=== PATIENT | female | born 1975 | race Hispanic/Latino ===

== ENCOUNTER 2019-10-05 09:08 | Inpatient (IN) | payer MEDICAID, OTHER ==
[~2019-10-05] VITALS: Ht 154.9 cm; Wt 96.6 kg
[~2019-10-05 09:08] MED LIST: AMLO5TAB4 PO; ASPI-1005 PO; ATOR10 PO; CALC500T7 PO; LISI10TA7 PO; PNV91TAB3 PO
[2019-10-05 09:31] LABS: BASOPHILS % (AUTO) 0.5 % (0.0-5.0); EOSINOPHILS % (AUTO) 10.9 % (0.0-8.0); HEMATOCRIT 40.5 % (36-48); LYMPHOCYTES % (AUTO) 20.9 % (21.0-51.0); MEAN CORPUSCULAR HEMOGLOBIN 27.7 pg (27.0-33.0); MEAN CORPUSCULAR HGB CONC 32.1 g/dL (32.0-36.0); MEAN CORPUSCULAR VOLUME 86.2 fL (79-99); MONOCYTES % (AUTO) 4.9 % (3.0-13.0); NEUTROPHILS % (AUTO) 62.4 % (40.0-77.0); PLATELET COUNT (AUTO) 229 K/uL (130-400); RED CELL DISTRIBUTION WIDTH 13.3 % (11.0-15.5); WHITE BLOOD COUNT (AUTO) 5.7 K/uL (4.8-10.8)
[2019-10-05 09:47] LABS: ALBUMIN 3.8 g/dL (3.5-5.0); BILIRUBIN,TOTAL 0.5 mg/dL (0.2-1.0); CREATININE 0.7 mg/dL (0.5-1.5); TOTAL PROTEIN, SERUM 7.7 g/dL (6.0-8.3)
[2019-10-05] MEDS ORDERED: IOHEXOL-350 75 ML VIAL IV ONE (10:22)
[2019-10-05 15:00] VITALS: BP 131/75
--- NOTE | 2019-10-05 16:00 | NUR ---
PATIENT ADMITTED UNDER DR. BAEZ'S SERVICES FOR LEFT BREAST CA. PER PATIENT, WILL BE HOSPITALIZED FOR FURTHER TEST. NO CONSULTS.
--- NOTE | 2019-10-05 16:16 | NUR ---
TO NUCLEAR MED. DEPT NOW FOR BONE SCAN.
[2019-10-05] MEDS ORDERED: FLU VACC QS2019-20 36MOS UP/PF 60 MCG/0.5 ML ML IM ONE ×2 (16:30→20:27)
[2019-10-05 19:00] VITALS: BP 129/77
[2019-10-05] MEDS ORDERED: ATORVASTATIN CALCIUM 20 MG TABLET PO SCH (21:00)
[2019-10-06] VITALS: BP 124/72
[2019-10-06 04:00] VITALS: BP 134/80
[2019-10-06 07:14] VITALS: BP 134/80
[2019-10-06] MEDS ORDERED: LISINOPRIL 10 MG TABLET PO SCH (09:00)
[2019-10-06] MEDS ORDERED: AMLODIPINE BESYLATE 5 MG TAB PO SCH (09:00)
[2019-10-06] MEDS ORDERED: ASPIRIN 81MG TAB.CHEW PO SCH (09:00)
[2019-10-06 11:03] VITALS: BP 136/78
== END 2019-10-06 14:03 | disposition home or self-care (01) | DRG 599 ==
LOC: EDH 09:08 → OBSVTOIN 09:59 → EDHIP 09:59 → 3CH 14:42
PROVIDERS: ADMIT Internal Medicine Hematology & Oncology; ATTEND Internal Medicine Hematology & Oncology
DX: C50.919 Malignant neoplasm of unspecified site of unspecified female breast (principal); I10 Essential (primary) hypertension; Z86.73 Personal history of transient ischemic attack (TIA), and cerebral infarction without residual deficits; Z23 Encounter for immunization
CPT/HCPCS: 36415; 71270; 74178; 78306; 80053; 85025; A9503; G0378; Q2035; Q9967

== ENCOUNTER 2020-11-07 15:57 | Inpatient (IN) | payer MEDICAID ==
[~2020-11-07] VITALS: Ht 154.9 cm; Wt 74.5 kg
[~2020-11-07 15:57] MED LIST changes: -CALC500T7 PO; +LISI10TA24 PO; -LISI10TA7 PO; -PNV91TAB3 PO
[2020-11-07 17:16] LABS: BASOPHILS % (AUTO) 0.2 % (0.0-5.0); EOSINOPHILS % (AUTO) 0.9 % (0.0-8.0); LYMPHOCYTES % (AUTO) 26.9 % (21.0-51.0); MEAN CORPUSCULAR HEMOGLOBIN 28.7 pg (27.0-33.0); MEAN CORPUSCULAR HGB CONC 33.2 g/dL (32.0-36.0); MEAN CORPUSCULAR VOLUME 86.3 fL (79-99); NEUTROPHILS % (AUTO) 65.8 % (40.0-77.0); PLATELET COUNT (AUTO) 221 K/uL (130-400); RED BLOOD CELL COUNT(AUTO) 3.94 MIL/uL (4.00-5.50); RED CELL DISTRIBUTION WIDTH 13.3 % (11.0-15.5); WHITE BLOOD COUNT (AUTO) 4.6 K/uL (4.8-10.8)
[2020-11-07 17:29] LABS: INR 1.03 (0.85-1.15); PROTHROMBIN TIME 11.2 SEC (9.6-11.6)
[2020-11-07 17:30] LABS: CREATININE 0.7 mg/dL (0.5-1.5); PARTIAL THROMBOPLASTIN TIME 25.3 SEC (26.3-35.5); POTASSIUM 3.8 mmol/L (3.5-5.1)
[2020-11-07] MEDS ORDERED: ASPIRIN 325 MG TABLET ONE (17:30)
[2020-11-07] MEDS ORDERED: ACETAMINOPHEN 325 MG TAB ONE (17:30)
[2020-11-07] MEDS ORDERED: DiphenhydrAMINE HCL 50 MG/ML VIAL ONE (17:30)
[2020-11-07] MEDS ORDERED: PROCHLORPERAZINE 10MG/2ML INJ ONE (17:30)
[2020-11-07] MEDS ORDERED: 0.9%NACL 1000ML 1,000 ML IV ONE (17:31)
[2020-11-07 17:39] LABS: ALBUMIN 3.4 g/dL (3.5-5.0); BILIRUBIN,TOTAL 0.3 mg/dL (0.2-1.0); TOTAL PROTEIN, SERUM 7.3 g/dL (6.0-8.3)
[2020-11-07 17:56] LABS: B-TYPE NATRIURETIC PEPTIDE 14 pg/mL (0-100)
[2020-11-07] MEDS ORDERED: DEXAMETHASONE SOD PHOSPHATE 4 MG/ML 1ML VIAL IVP SCH (19:30)
[2020-11-07] MEDS ORDERED: MORPHINE 2 MG SYG IVP PRN (19:30)
[2020-11-07] MEDS ORDERED: 0.9%NACL 1000ML 1,000 ML IV SCH (19:30)
[2020-11-07] MEDS ORDERED: ONDANSETRON 4MG INJ IVP PRN (19:30)
[2020-11-07] MEDS ORDERED: DEXAMETHASONE SOD PHOSPHATE 4 MG/ML 1ML VIAL ONE (21:49)
[2020-11-08 00:50] VITALS: BP 126/66
[2020-11-08] MEDS ORDERED: AMLO-257 PO (01:41)
[2020-11-08] MEDS ORDERED: LISI20TA24 PO (01:41)
[2020-11-08] MEDS ORDERED: LETR2.5T7 PO (01:41)
[2020-11-08] MEDS ORDERED: DEXAMETHASONE SOD PHOSPHATE 4 MG/ML 1ML VIAL ONE (03:21)
[2020-11-08 04:00] VITALS: BP 126/66
[2020-11-08] MEDS ORDERED: DEXAMETHASONE SOD PHOSPHATE 4 MG/ML 1ML VIAL IVP SCH ×2 (04:00→12:00)
[2020-11-08 07:38] LABS: APPEARANCE,URINE Clear (CLEAR); BILIRUBIN,URINE Negative (NEGATIVE); COLOR,URINE Yellow (YELLOW); GLUCOSE, URINE (UA) Negative (NEGATIVE); KETONES,URINE >=80 mg/dL (NEGATIVE); LEUKOCYTE ESTERASE ,URINE Negative (NEGATIVE); NITRATE,URINE Negative (NEGATIVE); OCCULT BLOOD,URINE Negative (NEGATIVE); PROTEIN,URINE Negative (NEGATIVE); UROBILINOGEN,URINE 0.2 mg/dL (0.2-1.0)
[2020-11-08 08:00] VITALS: BP 152/81
[2020-11-08] MEDS ORDERED: GADODIAMIDE 10 MMOL/20 ML VIAL IV ONE (08:00)
[2020-11-08 08:06] LABS: BACTERIA,URINE Rare /HPF (None Seen); RBC,URINE 0-1 /HPF (0-1); SQUAMOUS EPITHELIAL CELL,UR None Seen /HPF (0-2); WBC,URINE 0-1 /HPF (0-1)
[2020-11-08 11:52] VITALS: BP 148/76
== END 2020-11-08 13:50 | disposition home or self-care (01) | DRG 41 ==
LOC: EDH 15:57 → EDHIP 15:58 → 3AH 11-08 00:47
PROVIDERS: ADMIT Internal Medicine Hematology & Oncology; ATTEND Internal Medicine Hematology & Oncology
DX: C79.31 Secondary malignant neoplasm of brain (principal); G93.6 Cerebral edema; C50.919 Malignant neoplasm of unspecified site of unspecified female breast; I10 Essential (primary) hypertension; Z88.8 Allergy status to other drugs, medicaments and biological substances; Z85.3 Personal history of malignant neoplasm of breast; Z90.13 Acquired absence of bilateral breasts and nipples; Z91.19 Patient's noncompliance with other medical treatment and regimen; Z17.1 Estrogen receptor negative status [ER-]
CPT/HCPCS: 36415; 70450; 70553; 71045; 80053; 81001; 82550; 83690; 83880; 84484; 85025; 85610; 85730; 93005; A9579; G0378; J0780; J1100; J1200; J7030

== ENCOUNTER 2021-01-22 04:20 | Inpatient (IN) | payer MEDICAID ==
[~2021-01-22] VITALS: Ht 152.4 cm; Wt 75.3 kg
[~2021-01-22 04:20] MED LIST changes: +AMLO-257 PO; -AMLO5TAB4 PO; -ASPI-1005 PO; -ATOR10 PO; +LETR2.5T7 PO; -LISI10TA24 PO; +LISI20TA24 PO
[2021-01-22] MEDS ORDERED: NACL 0.9% 1000ML 1,000 ML IV ONE (04:45)
[2021-01-22 04:58] LABS: BASOPHILS % (AUTO) 0.4 % (0.0-5.0); HEMATOCRIT 29.7 % (36-48); LYMPHOCYTES % (AUTO) 8.5 % (21.0-51.0); MEAN CORPUSCULAR HEMOGLOBIN 29.1 pg (27.0-33.0); MEAN CORPUSCULAR VOLUME 91.1 fL (79-99); MONOCYTES % (AUTO) 1.3 % (3.0-13.0); NEUTROPHILS % (AUTO) 88.2 % (40.0-77.0); PLATELET COUNT (AUTO) 127 K/uL (130-400); RED BLOOD CELL COUNT(AUTO) 3.26 MIL/uL (4.00-5.50); RED CELL DISTRIBUTION WIDTH 18.4 % (11.0-15.5); WHITE BLOOD COUNT (AUTO) 4.5 K/uL (4.8-10.8)
[2021-01-22 05:12] LABS: CREATININE 2.1 mg/dL (0.5-1.5); POTASSIUM 4.2 mmol/L (3.5-5.1)
[2021-01-22 05:21] LABS: ALBUMIN 1.9 g/dL (3.5-5.0); BILIRUBIN,TOTAL 11.3 mg/dL (0.2-1.0); TOTAL PROTEIN, SERUM 5.5 g/dL (6.0-8.3)
[2021-01-22 05:31] LABS: PLATELET MORPHOLOGY PLT CLUMPS PRESENT
[2021-01-22 05:40] VITALS: BP 113/45
[2021-01-22 06:45] VITALS: BP 113/45
[2021-01-22] MEDS: NACL 0.9% 1000ML 1,000 ML IV SCH ×2 (07:36→16:45)
[2021-01-22] MEDS: DEXAMETHASONE SOD PHOSPHATE 4 MG/ML 1ML VIAL IVP SCH ×3 (07:39→22:17)
[2021-01-22 08:01] LABS: INR 1.87 (0.85-1.15); PROTHROMBIN TIME 19.3 SEC (9.6-11.6)
[2021-01-22 08:02] LABS: PARTIAL THROMBOPLASTIN TIME 34.6 SEC (26.3-35.5)
[2021-01-22] MEDS ORDERED: LORAZEPAM 2 MG/ML 1 ML VIAL ONE (09:10)
[2021-01-22] MEDS ORDERED: LORAZEPAM 2 MG/ML 1 ML VIAL IVP PRN (09:30)
[2021-01-22] MEDS ORDERED: LORAZEPAM 2 MG/ML 1 ML VIAL IM PRN (09:30)
[2021-01-22] MEDS: LEVETIRACETAM 1,000 MG in 0.9%NACL 100ML 100 ML IV SCH ×2 (10:16→22:19)
[2021-01-22 10:21] VITALS: BP 125/74
[2021-01-22 13:00] VITALS: BP 100/67
[2021-01-22] MEDS ORDERED: METO-391 PO (13:03)
[2021-01-22] MEDS ORDERED: HYDR-4068 PO (13:03)
[2021-01-22 16:00] VITALS: BP 93/52
[2021-01-22] MEDS: MORPHINE 2 MG SYG IVP PRN ×2 (17:25→23:51)
[2021-01-22 19:20] VITALS: BP 111/80
[2021-01-23] VITALS (7 sets, daily range): BP systolic 96–128; BP diastolic 59–81
[2021-01-23] MEDS ORDERED: MORPHINE 4 MG SYG ONE (01:28)
[2021-01-23] MEDS ORDERED: MORPHINE 4 MG SYG IM PRN (01:30)
[2021-01-23] MEDS: ONDANSETRON 4MG INJ IVP PRN (03:18)
[2021-01-23] MEDS: NACL 0.9% 1000ML 1,000 ML IV SCH ×3 (03:19→22:45)
[2021-01-23] MEDS: DEXAMETHASONE SOD PHOSPHATE 4 MG/ML 1ML VIAL IVP SCH ×5 (03:20→22:06)
[2021-01-23] MEDS: LEVETIRACETAM 1,000 MG in 0.9%NACL 100ML 100 ML IV SCH ×4 (05:08→22:06)
[2021-01-23] MEDS: MORPHINE 4 MG SYG IV PRN (06:21)
[2021-01-23] MEDS ORDERED: COMPOUND IV MISC 1 EACH IVSOLN MISC PRN (12:00)
[2021-01-23] MEDS: HYDROCODONE/ACETAMINOPHEN 10/325 MG TAB PO PRN (22:07)
[2021-01-24 03:54] VITALS: BP 122/71
[2021-01-24] MEDS: DEXAMETHASONE SOD PHOSPHATE 4 MG/ML 1ML VIAL IVP SCH ×4 (04:31→23:34)
[2021-01-24] MEDS: LEVETIRACETAM 1,000 MG in 0.9%NACL 100ML 100 ML IV SCH ×2 (06:17→20:55)
[2021-01-24 07:42] VITALS: BP 124/81
[2021-01-24] MEDS: MORPHINE 4 MG SYG IV PRN ×3 (08:27→23:39)
[2021-01-24] MEDS: NACL 0.9% 1000ML 1,000 ML IV SCH ×2 (10:35→18:39)
[2021-01-24 11:10] VITALS: BP 123/81
[2021-01-24] MEDS: HYDROCODONE/ACETAMINOPHEN 10/325 MG TAB PO PRN (15:24)
[2021-01-24 15:51] VITALS: BP 120/84
[2021-01-24 20:16] VITALS: BP 103/64
[2021-01-24] MEDS: ONDANSETRON 4MG INJ IVP PRN (21:34)
[2021-01-24 23:43] VITALS: BP 117/72
[2021-01-25] MEDS: NACL 0.9% 1000ML 1,000 ML IV SCH ×2 (03:10→14:15)
[2021-01-25 04:02] VITALS: BP 112/72
[2021-01-25] MEDS: DEXAMETHASONE SOD PHOSPHATE 4 MG/ML 1ML VIAL IVP SCH ×3 (05:59→19:12)
[2021-01-25] MEDS: LEVETIRACETAM 1,000 MG in 0.9%NACL 100ML 100 ML IV SCH ×3 (05:59→21:09)
[2021-01-25] MEDS: MORPHINE 4 MG SYG IV PRN ×4 (06:10→23:59)
[2021-01-25 07:23] VITALS: BP 108/68
[2021-01-25 11:20] VITALS: BP 121/70
[2021-01-25 16:07] VITALS: BP 109/67
[2021-01-25] MEDS: HYDROMORPHONE 0.5 MG SYG (0.5MG/0.5ML) IVP PRN ×2 (17:00→21:21)
[2021-01-25 19:57] VITALS: BP 101/61
[2021-01-26] MEDS: NACL 0.9% 1000ML 1,000 ML IV SCH ×2 (00:55→10:28)
[2021-01-26] MEDS: HYDROMORPHONE 0.5 MG SYG (0.5MG/0.5ML) IVP PRN ×5 (01:20→20:40)
[2021-01-26] MEDS: MORPHINE 4 MG SYG IV PRN ×5 (02:09→12:35)
[2021-01-26] MEDS: LEVETIRACETAM 1,000 MG in 0.9%NACL 100ML 100 ML IV SCH ×3 (05:23→20:42)
[2021-01-26] MEDS: DEXAMETHASONE SOD PHOSPHATE 4 MG/ML 1ML VIAL IVP SCH ×5 (05:24→23:30)
[2021-01-26 07:19] VITALS: BP 103/64
[2021-01-26 11:27] VITALS: BP 103/55
[2021-01-26 19:59] VITALS: BP 104/67
[2021-01-27] MEDS: HYDROMORPHONE 0.5 MG SYG (0.5MG/0.5ML) IVP PRN ×5 (00:43→21:33)
[2021-01-27] MEDS: MORPHINE 4 MG SYG IV PRN ×2 (03:17→23:15)
[2021-01-27] MEDS: LEVETIRACETAM 1,000 MG in 0.9%NACL 100ML 100 ML IV SCH ×3 (05:13→20:12)
[2021-01-27] MEDS: DEXAMETHASONE SOD PHOSPHATE 4 MG/ML 1ML VIAL IVP SCH ×4 (06:40→23:15)
[2021-01-27 07:10] VITALS: BP_SYST 143; BP_SYST 93; BP_DIAS 58; BP_DIAS 78
[2021-01-27 11:05] VITALS: BP 91/57
[2021-01-27 15:53] VITALS: BP 93/51
[2021-01-27 20:07] VITALS: BP 83/47
[2021-01-28] MEDS: HYDROMORPHONE 0.5 MG SYG (0.5MG/0.5ML) IVP PRN (01:12)
== END 2021-01-28 01:15 | DRG 53 ==
LOC: EDH 04:20 → EDHIP 06:31 → 3AH 12:01
PROVIDERS: ADMIT Internal Medicine Hematology & Oncology; ATTEND Internal Medicine Hematology & Oncology
DX: R56.9 Unspecified convulsions (principal); G93.6 Cerebral edema; D61.818 Other pancytopenia; K83.1 Obstruction of bile duct; C79.31 Secondary malignant neoplasm of brain; C78.7 Secondary malignant neoplasm of liver and intrahepatic bile duct; C50.919 Malignant neoplasm of unspecified site of unspecified female breast; Z51.5 Encounter for palliative care; I10 Essential (primary) hypertension; Z20.822 Contact with and (suspected) exposure to COVID-19; Z90.13 Acquired absence of bilateral breasts and nipples; Z17.1 Estrogen receptor negative status [ER-]; Z74.01 Bed confinement status
CPT/HCPCS: 36415; 70450; 80053; 82140; 82550; 83690; 84484; 85025; 85610; 85730; 87635; A4344; G0378; J1100; J1170; J1953; J2060; J2270; J2405; J7030